=== PATIENT | female | born 1950 | race Caucasian/White ===

== ENCOUNTER 2020-10-06 06:14 | Day surgery (SDC) | payer OTHER, MEDICARE, SELFPAY ==
[2020-10-02 16:29] LABS: BASOPHILS # (AUTO) 0.1 K/uL (0.0-0.2); BASOPHILS % (AUTO) 1.2 % (0.0-2.0); BILIRUBIN,URINE NEGATIVE (NEGATIVE); BLOOD, URINE NEGATIVE (NEGATIVE); CLARITY/URINE CLEAR (CLEAR); COLOR,URINE YELLOW (YELLOW); EOSINOPHILS # (AUTO) 0.1 K/uL (0.0-0.4); EOSINOPHILS % (AUTO) 2.2 % (0.0-4.0); GLUCOSE,URINE NEGATIVE (NEGATIVE); HEMATOCRIT 37.7 % (36-48); HEMOGLOBIN 12.5 g/dL (12.0-16.0); KETONES,URINE NEGATIVE (NEGATIVE); LYMPHOCYTES # (AUTO) 1.9 K/uL (1.0-5.5); LYMPHOCYTES % (AUTO) 33.4 % (20.5-51.5); MEAN CORPUSCULAR HEMOGLOBIN 30 pg (27-31); MEAN CORPUSCULAR HGB CONC 33 % (32-36); MEAN CORPUSCULAR VOLUME 90 fL (79.0-98.0); MONOCYTES # (AUTO) 0.4 K/uL (0.0-1.0); MONOCYTES % (AUTO) 7.6 % (1.7-9.3); NEUTROPHILS # (AUTO) 3.2 K/uL (1.8-7.7); NEUTROPHILS % (AUTO) 55.6 % (40.0-70.0); NITRITE, URINE NEGATIVE (NEGATIVE); PLATELET COUNT (AUTO) 240 K/uL (130-430); PROTEIN URINE NEGATIVE (NEGATIVE); RED BLOOD CELL COUNT(AUTO) 4.19 MIL/uL (4.2-6.2); RED CELL DISTRIBUTION WIDTH 14.5 % (9.0-15.0); UROBILINOGEN,URINE 0.2 (0.2-1.0); WHITE BLOOD COUNT (AUTO) 5.7 K/uL (4.8-10.8)
[2020-10-02 16:44] LABS: ALBUMIN 3.5 g/dL (3.4-4.8); CALCIUM 9.2 mg/dL (8.4-11.0); CREATININE 0.81 mg/dL (0.55-1.30); POTASSIUM 4.5 mmol/L (3.5-5.1); TOTAL BILIRUBIN 0.3 mg/dL (0.0-1.0)
[2020-10-02 16:47] LABS: LEUKOCYTE ESTERASE ,URINE TRACE (NEGATIVE); PROTHROMBIN TIME 10.4 SECS (9.5-12.5)
[2020-10-02 16:50] LABS: BACTERIA,URINE FEW /HPF (None Seen); RBC,URINE NONE SEEN /HPF (0-3)
[2020-10-02 16:51] LABS: MUCUS,URINE None Seen /LPF (None Seen)
[~2020-10-06] VITALS: Ht 175.3 cm; Wt 74.4 kg
[2020-10-06] MEDS ORDERED: CEFAZOLIN SOD 2 GM in D5W 50 ML IV ONE (07:00)
[2020-10-06] MEDS ORDERED: NORMAL SALINE 10 ML VIAL IVP ONE (07:35)
[2020-10-06] MEDS ORDERED: DEXAMETHASONE SOD PHOSPHATE 4 MG/ML VIAL IVP ONE (07:35)
[2020-10-06] MEDS ORDERED: PHENYLEPHRINE HCL 10 MG/ML VIAL (NEOSYNEPHRINE) IV ONE (07:35)
[2020-10-06] MEDS ORDERED: NS IRRIG SOLN 5000 ML IR ONE (07:35)
[2020-10-06] MEDS ORDERED: MIDAZOLAM HCL 5 MG/5 ML VIAL IVP ONE (07:35)
[2020-10-06] MEDS ORDERED: SEVOFLURANE 15 MIN GAS INH ONE (07:35)
[2020-10-06] MEDS ORDERED: ONDANSETRON HCL 4 MG/2 ML VIAL IVP ONE (07:35)
[2020-10-06] MEDS ORDERED: fentaNYL CITRATE/PF 100 MCG/2 ML AMP IVP ONE (07:35)
[2020-10-06] MEDS ORDERED: PROPOFOL 200MG/ 20ML VIAL (DIPRIVAN) IV ONE (07:35)
[2020-10-06] MEDS ORDERED: MEPERIDINE HCL/PF 25 MG/ML DISP.SYRIN IVP PRN (08:15)
[2020-10-06] MEDS ORDERED: METOCLOPRAMIDE HCL 10 MG/2 ML VIAL IVP PRN (08:15)
[2020-10-06] MEDS ORDERED: KETOROLAC TROMETHAMINE 30 MG VIAL IVP PRN (08:15)
[2020-10-06] MEDS ORDERED: ONDANSETRON HCL 4 MG/2 ML VIAL IVP PRN ×2 (08:15→08:45)
[2020-10-06] MEDS ORDERED: HYDROmorphone 1 INJ. 1 MG/ML CARTRIDGE IVP PRN ×2 (08:15)
[2020-10-06] MEDS ORDERED: LR 1,000 ML IV SCH (08:15)
[2020-10-06] MEDS ORDERED: HYDROcodone/ACETAMIN 5-325 MG TAB (NORCO/ VICODIN) PO PRN ×2 (08:45)
[2020-10-06 10:25] VITALS: BP_SYST 140
== END 2020-10-06 10:20 | disposition home or self-care (01) ==
LOC: SDS 06:14 → SMU 06:18 → SDS 10:20
PROVIDERS: ATTEND Obstetrics & Gynecology Gynecology
DX: N85.00 Endometrial hyperplasia, unspecified (principal); M54.30 Sciatica, unspecified side; Z98.51 Tubal ligation status; Z91.040 Latex allergy status; Z20.828 Contact with and (suspected) exposure to other viral communicable diseases; Z79.01 Long term (current) use of anticoagulants; Z79.899 Other long term (current) drug therapy
CPT/HCPCS: 36415 ×2; 58558; 71046; 80053; 81000; 85025; 85610; 85730; 86886; 86900; 86901; 87086; 88305; C1819; J0690; J1100; J2250; J2370; J2405; J2704; J3010; J7060; J7120; U0003

== ENCOUNTER 2020-12-31 08:31 | Day surgery (SDC) | payer OTHER, MEDICARE, SELFPAY ==
[2020-12-28 13:21] LABS: ALBUMIN 3.5 g/dL (3.4-4.8); BASOPHILS # (AUTO) 0.1 K/uL (0.0-0.2); BASOPHILS % (AUTO) 0.9 % (0.0-2.0); CALCIUM 9.6 mg/dL (8.4-11.0); CREATININE 0.84 mg/dL (0.55-1.30); EOSINOPHILS # (AUTO) 0.2 K/uL (0.0-0.4); EOSINOPHILS % (AUTO) 3.7 % (0.0-4.0); HEMATOCRIT 39.4 % (36-48); HEMOGLOBIN 12.7 g/dL (12.0-16.0); LYMPHOCYTES # (AUTO) 1.6 K/uL (1.0-5.5); LYMPHOCYTES % (AUTO) 27.3 % (20.5-51.5); MEAN CORPUSCULAR HEMOGLOBIN 29 pg (27-31); MEAN CORPUSCULAR HGB CONC 32 % (32-36); MEAN CORPUSCULAR VOLUME 91 fL (79.0-98.0); MONOCYTES # (AUTO) 0.5 K/uL (0.0-1.0); MONOCYTES % (AUTO) 8.1 % (1.7-9.3); NEUTROPHILS # (AUTO) 3.5 K/uL (1.8-7.7); PLATELET COUNT (AUTO) 233 K/uL (130-430); POTASSIUM 4.3 mmol/L (3.5-5.1); RED BLOOD CELL COUNT(AUTO) 4.32 MIL/uL (4.2-6.2); RED CELL DISTRIBUTION WIDTH 14.8 % (9.0-15.0); TOTAL BILIRUBIN 0.1 mg/dL (0.0-1.0); WHITE BLOOD COUNT (AUTO) 5.8 K/uL (4.8-10.8)
[~2020-12-31] VITALS: Ht 180.3 cm; Wt 74.8 kg
[~2020-12-31 08:31] MED LIST: CEFAZOLIN SOD 2 GM in D5W 50 ML IV ONE
[2020-12-31] MEDS ORDERED: ONDANSETRON HCL 4 MG/2 ML VIAL IVP ONE (11:30)
[2020-12-31] MEDS ORDERED: BUPIVACAINE /EPINEPHRINE/PF 0.5% 30 ML VIAL INJ ONE (11:30)
[2020-12-31] MEDS ORDERED: LR 1,000 ML IV.SOLN IV ONE (11:30)
[2020-12-31] MEDS ORDERED: hydrALAZINE HCL 20 MG/ML VIAL IVP ONE (11:30)
[2020-12-31] MEDS ORDERED: DEXAMETHASONE SOD PHOSPHATE 4 MG/ML VIAL IVP ONE (11:30)
[2020-12-31] MEDS ORDERED: NS 1000 ML IV.SOLN IV ONE (11:30)
[2020-12-31] MEDS ORDERED: fentaNYL CITRATE/PF 100 MCG/2 ML AMP IVP ONE (11:30)
[2020-12-31] MEDS ORDERED: MINERAL OIL/PETROLATUM,WHITE 3.5 GM EYE OINT. OP ONE (11:30)
[2020-12-31] MEDS ORDERED: SEVOFLURANE 15 MIN GAS INH ONE (11:30)
[2020-12-31] MEDS ORDERED: SUCCINYLCHOLINE CHLORIDE 20 MG/ML(QUELICIN) IVP ONE (11:30)
[2020-12-31] MEDS ORDERED: PROPOFOL 200MG/ 20ML VIAL (DIPRIVAN) IV ONE (11:30)
[2020-12-31] MEDS ORDERED: MEPERIDINE HCL 10 MG/ML SYRINGE IV ONE (11:30)
[2020-12-31] MEDS ORDERED: MIDAZOLAM HCL 5 MG/5 ML VIAL IVP ONE (11:30)
[2020-12-31] MEDS ORDERED: ROCURONIUM BROMIDE 10 MG/ML (ZEMURON) IV ONE (11:30)
[2020-12-31] MEDS ORDERED: NS IRRIG SOLN 1000 ML IR ONE (11:30)
[2020-12-31] MEDS ORDERED: SUGAMMADEX SODIUM 200 MG/2 ML VIAL IV ONE (11:30)
[2020-12-31] MEDS ORDERED: hydrALAZINE HCL 20 MG/ML VIAL IVP PRN (13:30)
[2020-12-31] MEDS ORDERED: METOCLOPRAMIDE HCL 10 MG/2 ML VIAL IVP PRN (13:30)
[2020-12-31] MEDS ORDERED: HYDROmorphone 1 MG/ML INJ. CARTRIDGE IVP PRN (13:30)
[2020-12-31] MEDS ORDERED: KETOROLAC TROMETHAMINE 30 MG VIAL IVP PRN (13:30)
[2020-12-31] MEDS ORDERED: ONDANSETRON HCL 4 MG/2 ML VIAL IVP PRN (13:30)
[2020-12-31] MEDS ORDERED: LR 1,000 ML IV SCH (13:30)
[2020-12-31] MEDS ORDERED: MEPERIDINE HCL/PF 25 MG/ML DISP.SYRIN IVP PRN (13:30)
[2020-12-31] MEDS ORDERED: ONDANSETRON HCL 4 MG/2 ML VIAL ONE (13:51)
[2020-12-31] MEDS ORDERED: HYDROmorphone 1 MG/ML INJ. CARTRIDGE ONE (13:51)
[2020-12-31] MEDS: HYDROmorphone 1 MG/ML INJ. CARTRIDGE IVP PRN ×3 (14:02→14:22)
[2020-12-31] MEDS ORDERED: KETOROLAC TROMETHAMINE 30 MG VIAL ONE (15:41)
[2020-12-31 16:30] VITALS: BP_SYST 142
== END 2020-12-31 16:23 | disposition home or self-care (01) ==
LOC: SDS 08:31 → SMU 08:31 → SDS 16:23
PROVIDERS: ATTEND Surgery
DX: K80.10 Calculus of gallbladder with chronic cholecystitis without obstruction (principal); K82.8 Other specified diseases of gallbladder; I10 Essential (primary) hypertension; Z20.822 Contact with and (suspected) exposure to COVID-19; Z79.899 Other long term (current) drug therapy
CPT/HCPCS: 36415; 47562; 71046; 80053; 85025; 88304; 93005; C1727; C9399; J0330; J0360; J0690; J1100; J1170; J1885; J2175; J2250; J2405; J2704; J3010; J3490; J7030; J7060; J7120; U0003; Q9967